=== PATIENT | female | born 1950 | race Two or more races ===

== ENCOUNTER 2021-11-28 07:17 | Inpatient (IN) | payer OTHER ==
[~2021-11-28] VITALS: Ht 152.4 cm; Wt 78.9 kg
[~2021-11-28 07:17] MED LIST: CHLORTHALIDONE25 MG PO; GLUMETZA500 MG PO; HYDRALAZINE HC100 MG PO; PEPCID AC10 MG PO; PRILOSEC OTC20 MG PO; REQUIP PO; SYNTHROID137 MCG PO; TOPROL XL100 M1 PO
[2021-12-01] MEDS ORDERED: POLY119PG PO (11:17)
[2021-12-01] MEDS ORDERED: PERCOCET 5-3251 EACH PO (11:17)
[2021-12-01] MEDS ORDERED: LEVOFLOXACIN750 MG PO (11:22)
== END 2021-12-01 14:48 | disposition home or self-care (01) | DRG 355 ==
LOC: CIR.AMB 07:17 → SURH 15:42
PROVIDERS: ADMIT Surgery; ATTEND Surgery
PROC: 0KXL0Z6 Transfer Left Abdomen Muscle, Transverse Rectus Abdominis Myocutaneous Flap, Open Approach (ICD-10-PCS; 2021-11-28)
PROC: 0KXK0Z6 Transfer Right Abdomen Muscle, Transverse Rectus Abdominis Myocutaneous Flap, Open Approach (ICD-10-PCS; 2021-11-28)
PROC: 0WUF4JZ Supplement Abdominal Wall with Synthetic Substitute, Percutaneous Endoscopic Approach (ICD-10-PCS; principal; 2021-11-28 12:45)
DX: K43.0 Incisional hernia with obstruction, without gangrene (principal)

== ENCOUNTER 2022-01-08 15:10 | Inpatient (IN) | payer OTHER ==
[~2022-01-08] VITALS: Ht 152.4 cm; Wt 173.7 kg
[~2022-01-08 15:10] MED LIST changes: +LEVOFLOXACIN750 MG PO; +PERCOCET 5-3251 EACH PO; +POLY119PG PO
[2022-01-10] MEDS ORDERED: OMEPRAZOLE20 MG (13:25)
[2022-01-10] MEDS ORDERED: ROPINIROLE HCL2 MG (13:25)
[2022-01-10] MEDS ORDERED: CHLORTHALIDONE25 MG (13:25)
[2022-01-10] MEDS ORDERED: ATORVASTATIN CA20 MG (13:25)
[2022-01-10] MEDS ORDERED: ROPINIROLE HCL1 MG (13:28)
== END 2022-01-22 15:26 | disposition home or self-care (01) | DRG 357 ==
LOC: ER 15:10 → SURH 01-09 14:14
PROVIDERS: ADMIT Surgery; ATTEND Surgery
PROC: BW21YZZ Computerized Tomography (CT Scan) of Abdomen and Pelvis using Other Contrast (ICD-10-PCS; 2022-01-08)
PROC: 0W9F3ZZ Drainage of Abdominal Wall, Percutaneous Approach (ICD-10-PCS; 2022-01-11)
PROC: 02HV33Z Insertion of Infusion Device into Superior Vena Cava, Percutaneous Approach (ICD-10-PCS; 2022-01-14)
PROC: 0JX80ZZ Transfer Abdomen Subcutaneous Tissue and Fascia, Open Approach (ICD-10-PCS; 2022-01-16)
PROC: 0WJF0ZZ Inspection of Abdominal Wall, Open Approach (ICD-10-PCS; 2022-01-16)
PROC: 0WBF4ZZ Excision of Abdominal Wall, Percutaneous Endoscopic Approach (ICD-10-PCS; principal; 2022-01-16 11:00)
DX: K43.2 Incisional hernia without obstruction or gangrene (principal); L02.211 Cutaneous abscess of abdominal wall; L76.34 Postprocedural seroma of skin and subcutaneous tissue following other procedure; I10 Essential (primary) hypertension; E03.9 Hypothyroidism, unspecified; B96.89 Other specified bacterial agents as the cause of diseases classified elsewhere; E11.9 Type 2 diabetes mellitus without complications; Z79.4 Long term (current) use of insulin